=== PATIENT | female | born 1985 | race Hispanic/Latino ===

== ENCOUNTER 2023-10-18 00:20 | Emergency (ER) | payer BC ==
[2023-10-18] MEDS ORDERED: Fluorescein Opthalmic Strip ONE (00:57)
[2023-10-18] MEDS ORDERED: Tetracaine 0.5% PF 4 ML BOT ONE (00:57)
== END 2023-10-18 01:17 | disposition home or self-care (01) ==
LOC: CSHERS 00:20
DX: H11.422 Conjunctival edema, left eye (principal); H57.89 Other specified disorders of eye and adnexa
CPT/HCPCS: 99283